=== PATIENT | male | born 1970 | race Caucasian/White ===

== ENCOUNTER 2025-03-13 07:48 | Outpatient (AMB) | payer OTHER, SELFPAY ==
--- NOTE | 2025-03-13 08:13 | PD.ORTHCLVIS ---
Vital signs 03/13/25 08:14 Height 1.7 m Height Method Stated Weight 72.66 kg Weight Measurement Method Standing Scale BMI 25.0 BP 115/77 Blood Pressure Source Automatic Cuff Blood Pressure Location Left Upper Arm Position Sitting Respiration 18 Pulse 70 Pulse Source Monitor Temp 97.7 F Temp Source Temporal Artery Scan Pulse Oximetry (%) 97 Oxygen Delivery Method Room Air Med/Allergies Allergies & Medications Allergies amoxicillin Allergy (Intermediate, Verified 03/13/25 08:16) Hives Latex, Natural Rubber Allergy (Mild, Verified 03/13/25 08:16) MILD IRRITATION Medication Reconciliation aspirin 81 mg capsule 81 mg PO QDAY 09/28/23 [History Confirmed 03/13/25] cetirizine 10 mg tablet (Zyrtec) 10 mg PO QDAY 09/28/23 [History Confirmed 03/13/25] cholecalciferol (vitamin D3) 25 mcg (1,000 unit) capsule (Vitamin D3) 1,000 unit PO QDAY 09/28/23 [History Confirmed 03/13/25] meloxicam 7.5 mg tablet 7.5 mg PO QDAY #45 tabs 03/13/25 [Rx] Exam Exam Patient is in no acute distress and is cooperative with the examination today. Breathing is nonlabored. Patient has a normal mood and affect. The patient has a gait that is nonantalgic Bilateral extremities were evaluated and demonstrates sensation intact to light touch. Palpable pedal pulses are present. No significant edema is present. Bilateral hips were examined. The patient has no pain with log roll of the hips. Internal rotation to 30 degrees and external rotation to 30 degrees is painless. Negative FADIR. Right knee was examined today. The right knee is in reasonable alignment. Range of motion from 0-120 degrees. Knee is stable to varus and valgus as well as AP translation with <5mm. Patient has a negative McMurrays. There is no pain with patellofemoral compression and no crepitus noted. The knee is nontender to palpation. Left knee was examined today. The left knee is in neutral alignment. Range of motion from 0-120 degrees. Knee is stable to varus and valgus as well as AP translation with <5mm. Patient has a negative McMurrays. There is no pain with patellofemoral compression and no crepitus noted. The knee is nontender to palpation diffusely. The knee is painful over the patella tendon Assessment and Plan Problem List (1) Patellar tendinitis: Status: Acute Plan: ASSESSMENT AND PLAN 1. Patellar tendinitis: Symptoms are consistent with patellar tendinitis, a common condition in endurance athletes and individuals engaged in repetitive motions or frequent jumping. The diagnosis is supported by the patient's description of pain and the results of the x-ray imaging from 09/2024, which show good joint space and alignment. Surgical intervention is not indicated for this condition. A prescription for meloxicam will be provided, with the option to increase to twice daily if necessary. He is advised to commence this medication post his half marathon event. Additionally, he is recommended to use Voltaren cream, an [id number] topical anti-inflammatory. A home exercise program focusing on stretches and strengthening exercises will be provided. An MRI is not deemed necessary at this point due to the classic presentation of his symptoms. If symptoms persist or worsen, an MRI may be considered. Office Procedures GNS Level of Care Nursing/Assessment Patient Status: Initial/New Patient Nursing Assessment/Reassesment: Medication Reconciliation, Update PMH in EMR and Vital Signs Coordination of Care: Complex Care and Chronic Disease 1-5, Education Complex Pt/Fam, Consent,records obtained, informed consent, 1 Ins Authorization, Lab and Imaging orders, Results/Orders obtained and Staff clarify orders New Patient Charge New Patient Point Assignment: 1124 New Patient Point Charge: NOODLE CATALYST [employer]KER Level 4 ([id number]) MA Intake Visit Data Collection New Patient or Established: New Patient (never been to [facility]) Reason for Visit:: LEFT KNEE PAIN Seen by Clinical Staff ONLY (RN/MA): No PCP or OBGYN visit in last 3 months: Yes Hx Now: No Do You Feel Safe at Home: Yes Authorities Contacted: N/A Questionairres Past Medical History Past Medical History Have you ever been diagnosed with any of the following: Neurological Problems Cerebrovascular Accident (CVA): No Transient Ischemic Attacks (TIA): No Dementia: No Alzheimer's Disease: No Parkinson's Disease: No Brain Tumor: No Meningitis: No Seizures: No Epilepsy: No Multiple Sclerosis: No Cerebral Palsy: No Amyotrophic Lateral Sclerosis (ALS/Moriah Gehrig's): No Guillain-Marshfield Syndrome: No Spina Bifida: No Paralysis: No Peripheral Neuropathy: No Lamb's Palsy: No Subdural Hematoma: No Migraine: Yes Head Trauma: No Spinal Cord Injury: No Traumatic Brain Injury: No Cardiology Problems Myocardial Infarction: No Cardiac Arrhythmia: No Atrial Fibrillation: No Angina: No Heart Murmur: No Coronary Artery Disease: No Atherosclerotic Heart Disease: No Peripheral Vascular Disease: No Hypercholesterolemia: No Aneurysm: No Congestive Heart Failure: No Congenital Heart Disease: No Valvular Heart Disease: No Rheumatic Fever: No Cardiomyopathy: No Edema: No Pericarditis: No Cellulitis: No Deep Vein Thrombosis: No Hypertension: No Hypotension: No Varicose Veins: No Respiratory Problems Chronic Obstructive Pulmonary Disease (COPD): No Asthma: No Bronchitis: No Emphysema: No Pneumonia: No Pulmonary Fibrosis: No Tuberculosis: No Pulmonary Embolism: No Pulmonary Edema: No Sleep Apnea: No CPAP Dependent: No Respiratory Aspiration: No Dyspnea: No Orthopnea: No Hx Cough: No Cough: No Wheezing: No Chest Deformities: No Smoking: No Smoking Cessation Counseling: No Smoking Exposure: No Tobacco Use: No Clubbing: No Exposure to Respiratory Irritants: No Intubation: No Stomache/Intestinal Problems Liver Cancer: No Hepatitis: No Cirrhosis: No Pancreatic Cancer: No Pancreatitis: No Celiac Disease: No Gall Bladder Disease: No Gastrointestinal Bleed: No Esophageal Varices: No Arce's Esophagus: No Colitis: No Ulcerative Colitis: No Diverticulitis: No Diverticulosis: No Ulcer: No Colorectal Cancer: No Irritable Bowel: No Crohn's Disease: No Obstructive Bowel: No Hiatal Hernia: No Hemorrhoids: No Gastroesophageal Reflux Disease: No Polyps: No Obesity: No Genital/Urinary Problems Chronic Kidney Disease: No Renal Disease: No Kidney Stones: No Polycystic Kidney Disease: No Neurogenic Bladder: No Inguinal Hernia: No Dialysis: No Prostate Cancer: No Benign Prostatic Hyperplasia: No Reproductive Problems Breast Cancer: No Fibroids: No Genital Herpes: No Gonorrhea: No Syphilis: No Testicular Cancer: No Musculoskeletal Problems Muscular Dystrophy: No Myasthenia Gravis: No Marfan's Syndrome: No Bone Cancer: No Arthritis: No Rheumatoid Arthritis: No Osteoporosis: No Degenerative Disk Disease: No Gout: No Scoliosis: No Carpal Tunnel Syndrome: No Fibromyalgia: No Fractures: No Degenerative Joint Disease: No Osteomyelitis: No Poliovirus: No Head,Eye,Nose,Throat Problems Cataracts: No Glaucoma: No Blind: No Retinal Detachment: No Macular Degeneration: No Chronic Ear Infections: No Deafness: No Eye Prosthesis: No Endocrine Problems Diabetes Mellitus Type 1: No Diabetes Mellitus Type 2: No Hypoglycemia: No Laurie's Syndrome: No Jona's Disease: No Hyperthyroidism: No Hypothyroidism: No Thyroid Cancer: No Parathyroid Disease: No Pituitary Disease: No Systemic Lupus Erythematosus: No Syndrome of Inappropriate Antidiuretic Hormone: No Adrenal Disease: No Graves' Disease: No Blood Problems Anemia: No Leukemia: No Hemophilia: No Thalassemia: No Sickle Cell Disease: No Clotting Problems: No Other Problems Blood Transfusions: No Anesthesia Reactions: No Cancer: No Subjective Visit Visit for: new patient and knee (LEFT) Immunization / Flu Flu Vaccine in the Last 12 Months: Yes Flu Vaccine Exclusion Criteria: Already Received History of Present Illness Chief complaint: LEFT KNEE PAIN Date of injury / onset of symptoms: MAY 2024 HISTORY OF PRESENT ILLNESS I, Marc Bryan, have obtained verbal consent from the patient, to be recorded during this encounter which may include, but not limited to, medical history, examination, treatment plans, and relevant health information.? Patient was informed that recording will be read and reviewed by myself before inclusion in the medical chart. The patient is a pleasant 54-year-old male who presents today for evaluation of his left knee pain. He reports intermittent left knee pain that began in 05/2024, which he rates as a 5 on the pain scale. The pain is described as an aching, grinding sensation located in the anterior part of the knee and is more pronounced during rest periods. He has not received any injections for this issue. He has no history of heart conditions. He has undergone physical therapy, which did not exacerbate the condition but also did not provide significant relief. He has been managing the pain with ibuprofen. An x-ray was performed at [facility] on 09/2024, but no prior knee x-rays have been conducted. He experiences intermittent pain in his left knee, which is exacerbated by exercise, particularly in the morning and afternoon. He is an avid runner, having completed a 12-mile run last Sunday, and is currently training for a half marathon scheduled for Sunday in [place]. He has been adhering to a training plan and typically runs [place] near his [place], incorporating hill runs into his routine. He has experimented with different footwear and currently uses [employer] shoes with a low drop between the toe and heel. He occasionally experiences ankle pain, but it is not a consistent issue. The knee pain has remained stable and has not worsened. He describes the pain as constant, particularly in the evenings, and localized under the patella. He has previously engaged in physical therapy exercises, including resistance band work, lateral movements, clamshells, and donkey kicks, but has not done so recently. He notes that these exercises sometimes exacerbate the pain. He has expressed interest in participating in the [employer] marathon on 07/19/2025 and is considering an 18-week training program starting next week. Personal History Hobbies: RUNS Pain Pain level (0-10): 5 Pain duration: WORSE WHEN RESTING Pain location: anterior Pain quality: dull and aching Pain timing: night Ambulatory data Ambulatory device: none Treatments Number of previous injections: 0 Improvement with previous injections: No Number of Physical Therapy sessions: 5 Improvement with PT: No Improvement with NSAIDS: yes (IBUPROFEN) Review of Systems Review of Systems: All systems negative unless otherwise noted in HPI.
[2025-03-13 08:14] VITALS: BP 115/77; PULSE 70; RESP 18; TEMP 36.5; O2SAT 97; BMI 25.0
== END 2025-03-13 08:44 | disposition home or self-care (01) ==
LOC: HODSRG 07:48
PROVIDERS: PCP Internal Medicine; Referring Provider Internal Medicine; Supervising Provider Orthopaedic Surgery Adult Reconstructive Orthopaedic Surgery; Visit Provider Orthopaedic Surgery Adult Reconstructive Orthopaedic Surgery
DX: M25.562 Pain in left knee (principal); M76.52 Patellar tendinitis, left knee
CPT/HCPCS: 99204; G0463